=== PATIENT | male | born 1950 | race Caucasian/White ===

== ENCOUNTER 2016-11-05 18:44 | Emergency (ER) | payer OTHER ==
[2016-11-05] MEDS ORDERED: ASPIRIN PO STA (18:58)
[2016-11-05 19:13] LABS: MANUAL DIFF NEEDED? NO
--- NOTE | 2016-11-05 19:20 | PROVIDER DOCUMENTATION ---
HPI-Chest Pain <Cam Sepulveda - Last Filed: 11/05/16 20:14> - General Source: patient <Dana Taylor - Last Filed: 11/05/16 20:19> - General Chief Complaint: Chest Pain Stated Complaint: SPIKE IN B/P AND CHEST DISCOMFORT Time Seen by Provider: 11/05/16 19:12 Allergies/Adverse Reactions: Patient Allergies Allergy/AdvReac Type Severity Reaction Status Date / Time No Known Allergies Allergy Verified 11/05/16 18:52 Home Medications: Home Medication List Medication Instructions Recorded Confirmed Last Taken Type Levothyroxine [Synthroid] 137 mcg PO DAILY 11/05/16 11/05/16 11/05/16 History Losartan Potassium [Cozaar] 100 mg PO DAILY 11/05/16 11/05/16 11/05/16 History Metoprolol [Lopressor] 12.5 mg PO DAILY 11/05/16 11/05/16 11/05/16 History Simvastatin 20 mg PO QHS 11/05/16 11/05/16 11/04/16 History Tamsulosin [Flomax] 0.4 mg PO DAILY 11/05/16 11/05/16 11/05/16 History - History of Present Illness-CP Nature of Presenting Problem: 66 year old M presents to the ED with a cc felling "weird". Pt states that today he felt some shortness of breath but walked around [facility] with no problem. Pt states that this evening he began feeling some tightness in his chest with no other symptoms. Pt states that sitting in his recliner helped. Pt took his blood pressure at home and it was at the highest it was 188/84. Pt states that he had a hx of PVCs but was traced back to his blood pressure medication. Pt states that tonight he is feeling some palpitations like when he had with PVCs. PT states that he has had some ABD pain but it is recurrent and is following up with a colonoscopy and EGD in a few weeks. (Dana Taylor) Review of Systems - Adult - REVIEW OF SYSTEMS - ADULT Constitutional: denies: chills, fever Eyes: reports: no symptoms reported Ears, Nose, Mouth & Throat: denies: ear pain, throat pain Cardiovascular: reports: chest pain. denies: palpitations Respiratory: reports: shortness of breath. denies: cough Gastrointestinal: reports: abdominal pain. denies: nausea Genitourinary: denies: dysuria, hematuria Musculoskeletal: denies: back pain, neck pain Integumentary: denies: skin sores/ulcer, skin thickening Neurological: reports: no symptoms reported Psychiatric: reports: no symptoms reported Endocrine: reports: no symptoms reported Hematologic/Lymphatic: reports: no symptoms reported Allergic/Immunologic: reports: no symptoms reported All Other Systems: Reviewed and Negative <BrandonDana - Last Filed: 11/05/16 20:19> Past History - Adult - PAST MEDICAL HISTORY-ADULT Review of Records: reports: Nursing Assessment Review, Medications Reviewed Major Childhood Illnesses: reports: denies history Cardiovascular: reports: A-Fib, HTN, hyperlipidemia - FAMILY HISTORY Family History: CAD over 55 yo - SOCIAL HISTORY Smoking: non-smoker Substance Use: none/never Alcohol Use Frequency: never <Henny Taylora - Last Filed: 11/05/16 20:19> Physical Exam-General - PHYSICAL EXAM-ADULT Initial Vital Signs Reviewed: Yes - CONSTITUTIONAL General Appearance: appears well, alert, no apparent distress - EYES Eyes: PERRL/EOMI, pink conjunctivae - HEAD, EARS, NOSE, MOUTH & THROAT HENMT: normocephalic/atraumatic, moist mucous membranes, pharynx normal - RESPIRATORY Respiratory: chest non-tender, lungs clear, normal breath sounds - CARDIOVASCULAR Cardiovascular: normal peripheral pulses, regular rate, rhythm, no edema - GASTROINTESTINAL (ABDOMEN) Abdominal Exam: normal bowel sounds, non tender, soft - MUSCULOSKELETAL Extremity: normal inspection, no pedal edema, no calf tenderness - SKIN Integumentary: normal color, normal turgor, warm/dry - PSYCHIATRIC Psych/Mental Status: normal mood/affect, normal thought content, normal thought process, oriented x 3 <Dana Taylor - Last Filed: 11/05/16 20:19> Progress <Cam Sepulveda - Last Filed: 11/05/16 20:14> - EKG 1 Time of EKG reading by physician:: 19:04 EKG Read and Signed by:: Cam Sepulveda EKG Interpretation (*Must complete 3 of following elements*): Abnormal Rate: 74 Rhythm: NSR QRS: RBB (incomplete) Comments: possible inferior infarct, age undetermined - XRAY 1 XRAY Study: Chest Impression: Abnormal XRAY Interpretation: granulomatous changes, nothing acute: Dr. Sepulveda- JOSE RAFAEL HERNANDEZ - CONSULTS/PCP/HOSPITALIST Notification #1 *Consult/PCP/Hospitalist*: Dr. Champion- PCP Time Discussed: 20:15 Consult Disposition: F/U in office <Dana Taylor - Last Filed: 11/05/16 20:19> - PLAN OF CARE/RESULTS Progress/Plan/Lab Results: plan of care: imaging, labs, medications, EKG Orders Category Date Time Status Cardiac Monitoring DIRECTED Care 11/05/16 18:59 Active Oxygen Therapy- ED Nursing DIRECTED Care 11/05/16 18:59 Active Saline Loc NOW Care 11/05/16 18:59 Active CHEST-2 VIEWS [RAD] Stat Exams 11/05/16 18:59 Taken CBC WITH ELECTRONIC DIFF [HEME] Stat Lab 11/05/16 19:02 Completed CK PROFILE [SP CHEM] Stat Lab 11/05/16 19:02 Completed COMPREHENSIVE METABOLIC PANEL [CHEM] Stat Lab 11/05/16 19:02 [address] D-DIMER [address] [COAG] Stat Lab 11/05/16 19:02 Completed MAGNESIUM [CHEM] Stat Lab 11/05/16 19:02 Completed PRO B-NATRIURETIC PEPTIDE Stat Lab 11/05/16 19:02 Completed [address]IME WITH INR PL [COAG] Stat Lab 11/05/16 19:[address] [COAG] Stat Lab 11/05/16 19:02 Completed TROPONIN T Stat Lab 11/05/16 19:02 Completed Aspirin Med 11/05/16 18:58 Discontinued 325 mg PO STAT STA Clonidine [Catapres] Med 11/05/16 19:55 Discontinued 0.2 mg .ROUTE .STK-MED ONE Clonidine [Catapres] Med 11/05/16 19:56 Discontinued 0.2 mg PO NOW ONE EKG [EKG] Stat Ther 11/05/16 18:59 Ordered Laboratory Tests 11/05/16 11/05/16 11/05/16 19:02 19:02 19:02 WBC RBC Hgb Hct MCV MCH MCHC RDW Std Deviation Plt Count MPV Immature Gran % (Auto) Neut % (Auto) Lymph % (Auto) Clay % (Auto) Eos % (Auto) Baso % (Auto) Immature Gran # (Auto) Neut # (Auto) Lymph # (Auto) Clay # (Auto) Eos # (Auto) Baso # (Auto) PT INR APTT (Factor Assay) D-Dimer Sodium 139 Potassium 3.5 Chloride 99 Carbon Dioxide 28 Anion Gap 12 BUN 10 Creatinine 1.1 Estimated GFR/1.73 m2 > 60 BUN/Creatinine Ratio 9 Glucose 129 H Calculated Osmolality 278 Calcium 9.1 Magnesium 1.7 Total Bilirubin 0.50 AST 19 ALT 16 Alkaline Phosphatase 91 Creatine Kinase 120 Troponin T < 0.010 Oos-W-Xwelrhcqfsr Pept 87 Total Protein 7.1 Albumin 4.5 Globulin 3.0 Albumin/Globulin Ratio 2.0 11/05/16 11/05/16 19:02 19:02 WBC 7.98 RBC 4.69 L Hgb 14.5 Hct 42.7 MCV 91.0 MCH 30.9 MCHC 34.0 RDW Std Deviation 13.0 Plt Count 143 MPV 11.5 H Immature Gran % (Auto) 0.1 Neut % (Auto) 71.5 Lymph % (Auto) 18.4 L Clay % (Auto) 6.9 Eos % (Auto) 2.1 Baso % (Auto) 1.0 H Immature Gran # (Auto) 0.01 Neut # (Auto) 5.70 Lymph # (Auto) 1.47 Clay # (Auto) 0.55 Eos # (Auto) 0.17 Baso # (Auto) 0.08 PT 14.7 INR 1.12 APTT (Factor Assay) 35.6 D-Dimer 0.33 Sodium Potassium Chloride Carbon Dioxide Anion Gap BUN Creatinine Estimated GFR/1.73 m2 BUN/Creatinine Ratio Glucose Calculated Osmolality Calcium Magnesium Total Bilirubin AST ALT Alkaline Phosphatase Creatine Kinase Troponin T Osz-K-Dazibrtybub Pept Total Protein Albumin Globulin Albumin/Globulin Ratio Vital Signs - 24 hr 11/05/16 18:49 Temperature 97.7 F Pulse Rate 67 Respiratory 18 Rate Blood Pressure 223/118 O2 Sat by Pulse 98 Oximetry Pt given results and will be d/c home w/o rx to follow up with PCP. Pt verbally understood instructions. PT remained clinically stable throughout the course of the ED stay and will return if symptoms worsen. (Dana Taylor) Departure - Departure Certified Medical Emergency: Emergent <Cam Sepulveda - Last Filed: 11/05/16 20:14> - Departure Time of Disposition Order: 20:18 Certified Medical Emergency: Emergent <Dana Taylor - Last Filed: 11/05/16 20:19> - Departure DIAGNOSIS: Uncontrolled hypertension Chest pain Qualifiers: Chest pain type: unspecified Qualified Code(s): R07.9 - Chest pain, unspecified Disposition: HOME 01 Condition: Stable Additional Instructions: followup with Dr. Champion tomorrow for recheck, return to ER if chest pain returns Referrals: Jian Champion MD [Primary Care Provider] - Instructions: Nonspecific Chest Pain, Hypertension, [id number] Attestation - Scribe Verification/Attestation Scribe:: Dana Taylor Acting as Scribe for:: Cam Sepulveda Scribe documention review:: This chart was documented by a scribe and accurately reflects the service the provider performed and the decisions made by the provider. <Dana Taylor - Last Filed: 11/05/16 20:19> Physician Attestation - Physician Attestation I, the provider, attest to the following statement:: Cam Sepulveda Physician documentation Attestation:: This documentation recorded by the scribe accurately reflects the service I personally performed and the decisions made by me. <Dana Taylor - Last Filed: 11/05/16 20:19>
[2016-11-05 19:29] LABS: EOS# 0.17 X1000 (0.0-0.7); EOS% 2.1 % (0.0-10.0); HEMATOCRIT 42.7 % (42.0-52.0); HEMOGLOBIN 14.5 g/dL (14.0-18.0); IMM GRAN# 0.01 X1000 (0.0-0.04); IMM GRAN% 0.1 % (0.0-0.5); LYMPH# 1.47 X1000 (1.2-3.4); LYMPH% 18.4 % (20.5-51.1); MCH 30.9 PG (27-31); MONO# 0.55 X1000 (0.11-0.59); MONO% 6.9 % (1.7-9.3); MPV 11.5 FL (7.4-10.4); NEUT% 71.5 % (42.2-75.2); PLT 143 X1000 (130-400); RBC 4.69 XMIL (4.7-6.1)
[2016-11-05 19:49] LABS: INR 1.12 (0.86-1.15); PROTIME 14.7 Seconds (12.1-15.5)
[2016-11-05 19:50] LABS: PTT PL 35.6 Seconds (22.6-43.9)
[2016-11-05] MEDS ORDERED: CATAPRES ONE (19:55)
[2016-11-05] MEDS ORDERED: CATAPRES PO ONE (19:56)
[2016-11-05 19:57] LABS: AGAP 12; ALBUMIN 4.5 g/dL (3.5-5.0); ALKALINE PHOSPHATASE 91 U/L (32-122); BUN 10 mg/dL (8-22); CALCIUM 9.1 mg/dL (8.8-10.2); CHLORIDE 99 mmol/L (98-107); CK PROFILE 120 U/L (24-204); COSMO 278; GOT 19 U/L (10-34); GPT 16 U/L (10-44); MAGNESIUM 1.7 mg/dL (1.5-2.7); POTASSIUM 3.5 mmol/L (3.5-5.1); SODIUM 139 mmol/L (136-145); TCO2 28 mmol/L (25-35); TOTAL PROTEIN 7.1 g/dL (6.3-8.3)
[2016-11-05 20:19] VITALS: BP 165/90
--- NOTE | 2016-11-06 05:07 | EKG Report ---
Test Performed on : 11/05/2016 7:04:01 PM Test Reason : SOB CP Blood Pressure : / mmHG Vent. Rate : 074 BPM Atrial Rate : 074 BPM P-R Int : 172 ms QRS Dur : 098 ms QT Int : 406 ms P-R-T Axes : 031 048 097 degrees QTc Int : 450 ms Normal sinus rhythm. Incomplete right bundle branch block Possible Inferior infarct (cited on or before 05-NOV-2016) Abnormal ECG When compared with ECG of 05-NOV-2016 19:03, (Unconfirmed) No significant change was found Unconfirmed Result
--- NOTE | 2016-11-06 08:36 | Diag Imaging Result Document ---
PROCEDURE NAME: CHEST-2 VIEWS - 11/05/2016 FRONTAL AND LATERAL CHEST, TWO VIEWS: COMPARISON: No comparison films. FINDINGS: The lungs are well expanded. The heart is not enlarged. The vessels are not distended. There are no infiltrates. No pleural effusions. No free air beneath the diaphragm. IMPRESSION: No acute abnormality.
== END 2016-11-05 20:26 | disposition home or self-care (01) ==
LOC: P.ED 18:44
DX: R07.9 Chest pain, unspecified (principal); I10 Essential (primary) hypertension; R06.02 Shortness of breath; R10.9 Unspecified abdominal pain; I48.91 Unspecified atrial fibrillation; E78.5 Hyperlipidemia, unspecified; R94.31 Abnormal electrocardiogram [ECG] [EKG]; Z79.899 Other long term (current) drug therapy; Z82.49 Family history of ischemic heart disease and other diseases of the circulatory system
CPT/HCPCS: 71020; 80053; 82550; 83735; 83880; 84484; 85025; 85379; 85610; 85730; 93005; 99284